=== PATIENT | female | born 1940 | race Caucasian/White ===

== ENCOUNTER 2016-05-07 10:04 | Outpatient (CLI) | payer MEDICARE, MEDICAID | END 2016-05-07 10:05 | disposition home or self-care (01) | DX: E78.5 Hyperlipidemia, unspecified (principal); I25.5 Ischemic cardiomyopathy; I50.22 Chronic systolic (congestive) heart failure; I25.10 Atherosclerotic heart disease of native coronary artery without angina pectoris; Z95.5 Presence of coronary angioplasty implant and graft; I10 Essential (primary) hypertension ==

== ENCOUNTER 2016-06-21 11:14 | Outpatient (CLI) | payer MEDICARE, MEDICAID | END 2016-06-21 11:15 | disposition home or self-care (01) | DX: R05 Cough (principal); R09.89 Other specified symptoms and signs involving the circulatory and respiratory systems; I51.7 Cardiomegaly ==

== ENCOUNTER 2016-09-29 08:00 | Outpatient (CLI) | payer MEDICARE, MEDICAID ==
[2016-09-29 13:13] LABS: HEMOGLOBIN A1C 0.86 g/dL
[2016-09-29 13:22] LABS: ALBUMIN/GLOBULIN RATIO 1.1 (1.0-2.2); BILIRUBIN,TOTAL 0.6 mg/dL (0.2-1.0); BUN - BLOOD UREA NITROGEN 28 mg/dL (6-20); CALCIUM 10.6 mg/dL (8.5-10.3); CARBON DIOXIDE - CO2 27 mmol/L (21-32); CHLORIDE 108 mmol/L (101-111); CHOL/HDL RATIO 5.2 (<4.4); CHOLESTEROL 140 mg/dL; GFR - MDRD 54 (>89); GLUCOSE 127 mg/dL (70-100); HDL CHOLESTEROL 27 mg/dL; LDL/HDL RATIO 2.8 (<4.4); MAGNESIUM 2.1 mg/dL (1.7-2.8); POTASSIUM 4.2 mmol/L (3.5-5.0); SODIUM 139 mmol/L (135-145); TOTAL PROTEIN 7.7 g/dL (6.7-8.2); TRIGLYCERIDES 190 mg/dL; VLDL CHOLESTEROL 38 mg/dL
== END 2016-09-29 08:01 | disposition home or self-care (01) ==
LOC: LAB.N 08:00
PROVIDERS: ATTEND Internal Medicine
DX: I50.9 Heart failure, unspecified (principal); E13.40 Other specified diabetes mellitus with diabetic neuropathy, unspecified; E78.5 Hyperlipidemia, unspecified; N18.3 Chronic kidney disease, stage 3 (moderate)
CPT/HCPCS: 36415; 80053; 80061; 82043; 82570; 83036; 83735; 83880; 84443

== ENCOUNTER 2016-11-25 10:58 | Outpatient (CLI) | payer MEDICARE, MEDICAID | END 2016-11-25 10:59 | disposition critical access hospital (66) | LOC: EMS 10:58 | PROVIDERS: ATTEND Surgery | DX: M54.5 Low back pain (principal); W22.8XXA Striking against or struck by other objects, initial encounter; W18.39XA Other fall on same level, initial encounter; Y92.002 Bathroom of unspecified non-institutional (private) residence as the place of occurrence of the external cause; Z79.01 Long term (current) use of anticoagulants | CPT/HCPCS: A0425; A0429 ==

== ENCOUNTER 2016-11-25 11:21 | Emergency (ER) | payer MEDICARE, MEDICAID ==
--- NOTE | 2016-11-25 13:27 | ED Physician Documentation ---
PD HPI Fall - Stated complaint Stated Complaint: GLF - Chief complaint Chief Complaint: Back Pain - History obtained from History obtained from: Patient, Family - History of Present Illness Mechanism of injury: Slipped Fall distance: Standing position Where injury occurred: Home Timing - onset: How many hours ago (2) Injury(ies) location: Head (hit head on wall on the way to the ground. No LOC. pt is on plavix.), Other (sacrum/coccyx) Pain level max: 5 Pain level now: 1 Quality of pain: Aching, Dull Associated symptoms: No: LOC, AMS, Amnesia, Seizures, Ear drainage, Nasal drainage, Neck pain, Weakness, Paresthesias, Dyspnea, Nausea / vomiting, Hematemesis Symptoms improve with: Rest Worsens with: Movement, Palpation Contributing factors: Anticoagulated (plavix) Review of Systems Constitutional: denies: Fever, Chills Eyes: denies: Decreased vision, Photophobia Ears: denies: Ear pain Nose: denies: Rhinorrhea / runny nose, Congestion Throat: denies: Sore throat Cardiac: denies: Chest pain / pressure Respiratory: denies: Cough, Wheezing GI: denies: Abdominal Pain, Nausea, Vomiting, Diarrhea Skin: denies: Rash Musculoskeletal: denies: Neck pain, Back pain Neurologic: denies: Focal weakness, Numbness, Headache PD PAST MEDICAL HISTORY - Past Medical History Past Medical History: Yes Cardiovascular: Congestive heart failure, Coronary artery disease, [place] Respiratory: Pneumonia, Sleep apnea Neuro: TIA, Head injury Endocrine/Autoimmune: Type 2 diabetes GI: None : Incontinence, Indwelling catheter HEENT: Chronic vision loss, Chronic hearing loss Psych: None Musculoskeletal: Osteoarthritis Derm: Psoriasis - Past Surgical History Past Surgical History: Yes General: Colonoscopy Ortho: Other HEENT: Cataracts - Present Medications Home Medications: Ambulatory Orders Medication Instructions Recorded Confirmed Furosemide [Lasix] 20 mg PO DAILY 10/21/12 11/25/16 Spironolactone [Aldactone] 25 mg PO DAILY 10/21/12 11/25/16 Insulin Glargine,Hum.rec.anlog 20 unit SQ DAILY 09/10/15 11/25/16 [Toucharis Solostar] Carvedilol 12.5 mg PO DAILY 03/17/16 11/25/16 Sacubitril/Valsartan [Entresto 49 1 tab ORAL DAILY 11/25/16 11/25/16 mg-51 mg Tablet] - Allergies Allergies/Adverse Reactions: Allergies Allergy/AdvReac Type Severity Reaction Status Date / Time fentanyl Allergy Unknown Rash Verified 11/25/16 11:36 oxycodone HCl * Allergy Unknown Rash Verified 11/25/16 11:36 [From Percodan] Penicillins Allergy Unknown Rash Verified 11/25/16 11:36 - Social History Does the pt smoke?: No Smoking Status: Former smoker Does the pt drink ETOH?: No Does the pt have substance abuse?: No - POLST Patient has POLST: No PD ED PE NORMAL - Vitals Vital signs reviewed: Yes - General General: Alert and oriented X 3, No acute distress - HEENT HEENT: Atraumatic, PERRL, Moist mucous membranes, Pharynx benign - Neck Neck: Supple, no meningeal sign, No bony TTP - Cardiac Cardiac: RRR, Strong equal pulses - Respiratory Respiratory: No respiratory distress, Clear bilaterally - Abdomen Abdomen: Soft, Non tender, Non distended - Back Back: No spinal TTP (No T or L spine Tenderness. Pt is TTP over the coccyx. No gross deformity. No visible ecchymosis. 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, No motor deficit, No sensory deficit Results - Vitals Vitals: Vital Signs - 24 hr 11/25/16 11/25/16 11/25/16 11:20 11:22 11:31 Temperature 36.6 C Heart Rate 84 62 78 Respiratory 20 18 16 Rate Blood Pressure 168/89 H 169/85 H 144/76 H O2 Saturation 95 98 98 11/25/16 11/25/16 13:55 15:45 Temperature Heart Rate 73 82 Respiratory 18 18 Rate Blood Pressure 114/65 128/84 H O2 Saturation 100 98 Oxygen O2 Source [] Room air O2 Source [] Room air O2 Source Room air - Rads (name of study) head CT Radiology: Prelim report reviewed, EMP read contemporaneously, See rad report ( Generalized age-related cortical atrophic changes without evidence of acute intracranial abnormality) sacrum xray Radiology: Prelim report reviewed, EMP read contemporaneously, See rad report ( Since the comparison study, there is a new focal area of acute angulation of the distal sacral segments, compatible with acute fracture. ) PD MEDICAL DECISION MAKING - ED course Complexity details: reviewed results, re-evaluated patient, considered differential, d/w patient, d/w family ED course: Patient is a 76-year-old female who slipped and fell in the bathroom today. She is on Plavix and did strike her head, therefore a head CT was performed. No acute intracranial abnormality. She is tender over the sacrum and coccyx. On x-ray she appears to have acute angulation of the distal sacral segments, compatible with acute fracture. She declines any pain medication here or for home. Has a walker that she will use at home. Ambulating without difficulty. Patient counseled regarding signs and symptoms for which I believe and urgent re -evaluation would be necessary. Patient with good understanding of and agreement to plan and is comfortable going home at this time This document was made in part using voice recognition software. While efforts are made to proofread this document, sound alike and grammatical errors may occur. Departure - Departure Disposition: 01 Home, Self Care Clinical Impression: Sacral fracture, closed Qualifiers: Encounter type: initial encounter Zone of sacrum fracture: unspecified portion of sacrum Qualified Code(s): S32.10XA - Unspecified fracture of sacrum, initial encounter for closed fracture Condition: Good Instructions: ED Fx Coccyx Follow-Up: Monika Nair MD [Primary Care Provider] - Within 3 Days Comments: Return if you worsen. You may bear weight as tolerated. Discharge Date/Time: 11/25/16 16:05
--- NOTE | 2016-11-25 14:19 | CT Preliminary Report ---
Exam: CT Head W/O IMPRESSION: Generalized age-related cortical atrophic changes without evidence of acute intracranial abnormality. [facility] SITE ID: [id number]
--- NOTE | 2016-11-25 14:22 | CT Report ---
EXAM: CT HEAD EXAM DATE: 11/25/2016 02:09 PM. CLINICAL HISTORY: Fall, head injury. COMPARISON: 09/24/2015. TECHNIQUE: Multiaxial CT images were obtained from the foramen magnum to the vertex. IV contrast: Non e. Reformats: Coronal. In accordance with CT protocol optimization, one or more of the following dose reduction techniques w ere utilized for this exam: automated exposure control, adjustment of mA and/or KV based on patient s ize, or use of iterative reconstructive technique. FINDINGS: Parenchyma: No intraparenchymal hemorrhage. No evidence of mass, midline shift, or CT findings of acu te infarction. Ac-white differentiation is distinct. Extraaxial Spaces: Normal for age. No subdural or epidural collections. Ventricles: The ventricles and cortical sulci are enlarged, consistent with age-related tissue loss. Sinuses: Imaged paranasal sinuses, orbits, and mastoids show no significant abnormality. Bones: Unremarkable. Other: Diffuse chronic microangiopathic white matter changes. IMPRESSION: Generalized age-related cortical atrophic changes without evidence of acute intracranial abnormality. [facility] Referring Provider Line: [phone] SITE ID: [id number]
--- NOTE | 2016-11-25 14:57 | XRAY Preliminary Report ---
Exam: XR Sacrum/Coccyx IMPRESSION: 1. Since the comparison study, there is a new focal area of acute angulation of the distal sacral seg ments, compatible with acute fracture. [facility] SITE ID: [id number]
--- NOTE | 2016-11-25 15:12 | XRAY Report ---
EXAM: SACRUM AND COCCYX RADIOGRAPHY EXAM DATE: 11/25/2016 02:04 PM. HISTORY: Fall, coccyx pain. COMPARISONS: 08/02/2012. TECHNIQUE: 3 views. FINDINGS: Alignment: In the interval, there is a new relatively sharp angulation of the distal sacrum near the coccygeal segments. No discrete step-off. Bones: Bones are osteopenic. Endplate sclerosis is seen at L4-L5 and L5-S1 with marginal facet arthro sis also at these levels. Joints: Normal. The sacroiliac joints and visualized hips are within normal limits. Soft Tissues: Unremarkable. IMPRESSION: 1. Since the comparison study, there is a new focal area of acute angulation of the distal sacral seg ments, compatible with acute fracture. [facility] Referring Provider Line: [phone] SITE ID: [id number]
[2016-11-25 16:10] VITALS: BP 128/84
== END 2016-11-25 16:05 | disposition home or self-care (01) ==
LOC: ED 11:21
DX: S32.10XA Unspecified fracture of sacrum, initial encounter for closed fracture (principal); W01.0XXA Fall on same level from slipping, tripping and stumbling without subsequent striking against object, initial encounter; Y92.019 Unspecified place in single-family (private) house as the place of occurrence of the external cause; I50.9 Heart failure, unspecified; I25.10 Atherosclerotic heart disease of native coronary artery without angina pectoris; I25.2 Old myocardial infarction; G47.30 Sleep apnea, unspecified; E11.9 Type 2 diabetes mellitus without complications; Z79.4 Long term (current) use of insulin; Z86.73 Personal history of transient ischemic attack (TIA), and cerebral infarction without residual deficits; M19.90 Unspecified osteoarthritis, unspecified site; Z87.891 Personal history of nicotine dependence
CPT/HCPCS: 70450; 72220; 99283; 99284

== ENCOUNTER 2016-12-23 05:57 | Day surgery (SDC) | payer MEDICARE, MEDICAID ==
[2016-12-23] MEDS ORDERED: PHENYLEPHRINE 2.5% OPHTH 2 ML DROPS ONE (06:27)
[2016-12-23] MEDS ORDERED: KETOROLAC 0.45% OPHTH DROPS ONE (06:27)
[2016-12-23] MEDS ORDERED: TIMOLOL 0.5% OPHTH DROPS ONE ×2 (06:27→07:09)
[2016-12-23] MEDS ORDERED: CYCLOPENTOLATE 1% OPHTH DROPS 2 ML ONE (06:27)
[2016-12-23] MEDS ORDERED: PROPARACAINE 0.5% OPHTH DROPS 15 ML ONE (06:28)
[2016-12-23] MEDS ORDERED: KETOROLAC 0.45% OPHTH DROPS OPTH ONE (06:45)
[2016-12-23] MEDS ORDERED: CYCLOPENTOLATE 1% OPHTH DROPS 2 ML OPTH ONE (06:45)
[2016-12-23] MEDS ORDERED: PROPARACAINE 0.5% OPHTH DROPS 15 ML OPTH ONE ×2 (06:45→07:32)
[2016-12-23] MEDS ORDERED: PHENYLEPHRINE 2.5% OPHTH 2 ML DROPS OPTH ONE (06:45)
[2016-12-23] MEDS ORDERED: LACTATED RINGERS 500 ML IV ONE (06:49)
[2016-12-23] MEDS ORDERED: BRIMONIDINE 0.2% OPHTH DROPS 5 ML ONE (07:09)
[2016-12-23] MEDS ORDERED: BRIMONIDINE 0.2% OPHTH DROPS 5 ML OPTH ONE (07:31)
[2016-12-23] MEDS ORDERED: EPINEPHrine 1 MG/ML AMP IVP ONE (07:31)
[2016-12-23] MEDS ORDERED: BSS/LIDOCAINE/EPINEPHRINE 1 ML SYRINGE IO ONE ×2 (07:32)
[2016-12-23] MEDS ORDERED: TIMOLOL 0.5% OPHTH DROPS OPTH ONE (07:32)
[2016-12-23] MEDS ORDERED: CHONDR SULF/HYALURONATE SYRINGE IO ONE (07:32)
[2016-12-23] MEDS ORDERED: TRIAMCIN/MOXIFLOX/VANCO 1 ML VIAL IO ONE ×2 (07:33)
[2016-12-23] MEDS ORDERED: MIDAZOLAM 2 MG/2 ML VIAL IVP ONE (07:45)
[2016-12-23] MEDS ORDERED: LABETALOL 5 MG/1 ML 20 ML MDV IV ONE (07:45)
[2016-12-23 08:08] VITALS: BP 149/63
--- NOTE | 2016-12-23 08:38 | OPERATIVE REPORT ---
DATE OF SURGERY: 12/23/2016 00:00:00 PREOPERATIVE DIAGNOSIS: Visually significant cataract, left eye. This is her second cataract surgery. Cataract surgery was performed on the right eye in 2002 elsewhere. POSTOPERATIVE DIAGNOSIS: Visually significant cataract, left eye. This is her second cataract surgery. Cataract surgery was performed on the right eye in 2002 elsewhere. NAME OF PROCEDURE: Phacoemulsification posterior chamber intraocular lens implant, left eye. SURGEON: Kem Monzon MD. ANESTHESIA: Monitored anesthesia care. COMPLICATIONS: None. OPERATIVE INDICATIONS: This is a 76-year-old woman with progressive vision loss in the left eye due to a 2 to 3+ nuclear sclerotic and 2+ cortical cataract. Best corrected visual acuity was 20/60 with glare to 20/630 in the left eye. Indications for surgery were overall decrease in vision, difficulty seeing words on the computer screen, difficulty reading, difficulty seeing words and game scores on TV, difficulty seeing street signs, difficulty driving in low light or at night, difficulty driving at night because of head lights from other vehicles, difficulty with glare or bright lights in any situation, difficulty tracking a golf ball. She was consented at length concerning the risks and benefits of cataract surgery, after which she expressed a desire to proceed with surgery. OPERATIVE PROCEDURE: The patient was taken to OR #2 and placed under monitored anesthesia care. A surgical time-out was conducted confirming the correct patient, correct procedure, and correct surgical site. She was given topical anesthesia and prepped and draped in the usual sterile fashion. The eye was entered at the 6- and 3 o'clock positions. Intracameral Shugarcaine was injected into the anterior chamber followed by Viscoat. A continuous tear curvilinear capsulorrhexis was performed. The nucleus was hydrodissected and phacoemulsified. The cortex was evacuated using automated infusion aspiration. Provisc was injected into the capsular bag and a 19.5 diopter intraocular lens was inserted into the bag. Approximately 0.7 mL of a mixture of triamcinolone, moxifloxacin, and vancomycin was injected subconjunctivally in the superior quadrant for infection and inflammation prophylaxis. I/A was used to evacuate the viscoelastic materials. The eye was inflated to physiologic pressure using balanced salt solution and found to be water tight. The patient was taken from the operating room in good condition and given postoperative instructions. JOB #: [id number] EXT JOB #:[id number] MTDD
== END 2016-12-23 05:58 | disposition home or self-care (01) ==
LOC: SDS 05:57
PROVIDERS: ATTEND Ophthalmology
PROC: 08RK3JZ Replacement of Left Lens with Synthetic Substitute, Percutaneous Approach (ICD-10-PCS; principal; 2016-12-23 07:30)
DX: H25.812 Combined forms of age-related cataract, left eye (principal); E11.9 Type 2 diabetes mellitus without complications
CPT/HCPCS: 66984; A9270; J3490; V2632

== ENCOUNTER 2017-08-29 08:00 | Outpatient (CLI) | payer MEDICARE, MEDICAID ==
[2017-08-29 13:01] LABS: CALCIUM 9.8 mg/dL (8.5-10.3)
== END 2017-08-29 08:01 | disposition home or self-care (01) ==
LOC: LAB.N 08:00
PROVIDERS: ATTEND Internal Medicine Cardiovascular Disease
DX: I50.22 Chronic systolic (congestive) heart failure (principal)
CPT/HCPCS: 36415; 80048; 83880

== ENCOUNTER 2017-09-26 14:42 | Outpatient (CLI) | payer MEDICARE, MEDICAID ==
[2017-09-26 19:38] LABS: CALCIUM 9.7 mg/dL (8.5-10.3); CREATININE 1.1 mg/dL (0.4-1.0); MAGNESIUM 2.4 mg/dL (1.7-2.8)
[2017-09-26 20:04] LABS: HB2 TOTAL 10.9 g/dL; HEMOGLOBIN A1C 0.6 g/dL; HEMOGLOBIN A1C % 7.2 % (4.6-6.2)
== END 2017-09-26 14:43 | disposition home or self-care (01) ==
LOC: LAB.N 14:42
PROVIDERS: ATTEND Internal Medicine
DX: D64.9 Anemia, unspecified (principal); E55.9 Vitamin D deficiency, unspecified; E87.5 Hyperkalemia; I12.9 Hypertensive chronic kidney disease with stage 1 through stage 4 chronic kidney disease, or unspecified chronic kidney disease; E11.22 Type 2 diabetes mellitus with diabetic chronic kidney disease; N18.3 Chronic kidney disease, stage 3 (moderate)
CPT/HCPCS: 36415; 80048; 83036; 83735; 83880; 85651

== ENCOUNTER 2017-10-12 10:24 | Outpatient (CLI) | payer MEDICARE, MEDICAID ==
--- NOTE | 2017-10-12 15:03 | XRAY Report ---
Procedure Date: 10/12/2017 Accession Number: [id number] / [id number] Procedure: XRN - Cervical Spine Complete CPT Code: FULL RESULT: EXAM: Cervical Spine Complete DATE: 10/12/2017 11:09 AM CLINICAL HISTORY: CERVICALGIA COMPARISON: None. TECHNIQUE: 5 views. FINDINGS: Study is technically limited. The superior 6 cervical vertebral bodies are normal in height. There may be slight anterior listhesis of C5 with respect to C6. The alignment of the imaged vertebral bodies is otherwise unremarkable. The C1-2 alignment appears anatomic. The C5-6 disc space is narrowed. The C2-C4 disc spaces are well-maintained. Remaining disc spaces are well-maintained. Scattered degenerative facet joint arthropathy present. The neural foramen are not well seen. No prevertebral soft tissue swelling. Extensive right greater than left carotid artery calcification noted. IMPRESSION: Limited study. Degenerative change present most marked C5-6 disc level. C6-7 and C7-T1 disc levels and neural foramina are not well seen.
== END 2017-10-12 10:25 | disposition home or self-care (01) ==
LOC: DI.N 10:24
PROVIDERS: ATTEND Internal Medicine
DX: M47.892 Other spondylosis, cervical region (principal)
CPT/HCPCS: 72050

== ENCOUNTER 2017-11-09 08:00 | Outpatient (CLI) | payer MEDICARE, MEDICAID ==
[2017-11-09 19:05] LABS: CALCIUM 9.7 mg/dL (8.5-10.3); MAGNESIUM 2.1 mg/dL (1.7-2.8)
[2017-11-09 19:11] LABS: HEMOGLOBIN A1C 0.51 g/dL; HEMOGLOBIN A1C % 6.8 % (4.6-6.2)
== END 2017-11-09 08:01 | disposition home or self-care (01) ==
LOC: LAB.N 08:00
PROVIDERS: ATTEND Internal Medicine
DX: D64.9 Anemia, unspecified (principal); E11.9 Type 2 diabetes mellitus without complications; E55.9 Vitamin D deficiency, unspecified; E78.5 Hyperlipidemia, unspecified; I12.9 Hypertensive chronic kidney disease with stage 1 through stage 4 chronic kidney disease, or unspecified chronic kidney disease; I50.9 Heart failure, unspecified; N18.3 Chronic kidney disease, stage 3 (moderate)
CPT/HCPCS: 36415; 80048; 83036; 83735; 83880; 85651

== ENCOUNTER 2018-07-05 08:00 | Outpatient (CLI) | payer MEDICARE, MEDICAID ==
[2018-07-05 19:12] LABS: BILIRUBIN,URINE NEGATIVE (NEGATIVE); GLUCOSE, URINE (UA) NEGATIVE (NEGATIVE); KETONES,URINE (UA) NEGATIVE (NEGATIVE); LEUKOCYTE ESTERASE, URINE SMALL (NEGATIVE); NITRITE,URINE NEGATIVE (NEGATIVE); OCCULT BLOOD,URINE NEGATIVE (NEGATIVE); PROTEIN,URINE 30 mg/dL (NEGATIVE); UROBILINOGEN,URINE 0.2 (NORMAL) E.U./dL (NORMAL)
[2018-07-05 19:13] LABS: BASOPHILS % (AUTO) 0.2 %; EOSINOPHILS # (AUTO) 0.2 10^3/uL (0.0-0.7); EOSINOPHILS % (AUTO) 3.5 %; HGB - HEMOGLOBIN 9.2 g/dL (12.0-16.0); LYMPHOCYTES # (AUTO) 1.8 10^3/uL (1.5-3.5); LYMPHOCYTES % (AUTO) 35.8 %; MEAN CORPUSCULAR HEMOGLOBIN 27.2 pg (27.0-31.0); MEAN CORPUSCULAR HGB CONC 31.2 g/dL (32.0-36.0); MEAN CORPUSCULAR VOLUME 87.2 fL (81.0-99.0); MEAN PLATELET VOLUME 10.4 fL (7.9-10.8); MONOCYTES # (AUTO) 0.3 10^3/uL (0.0-1.0); MONOCYTES % (AUTO) 5.9 %; NEUTROPHILS # (AUTO) 2.8 10^3/uL (1.5-6.6); NEUTROPHILS % (AUTO) 54.6 %; PLT - PLATELET COUNT 100 10^3/uL (130-450); RED BLOOD COUNT 3.38 10^6/uL (4.20-5.40); RED CELL DISTRIBUTION WIDTH 16.7 % (12.0-15.0); WHITE BLOOD COUNT 5.1 x10^3/uL (4.8-10.8)
[2018-07-05 19:23] LABS: BACTERIA,URINE Many /HPF (None Seen); CLARITY,URINE CLOUDY (CLEAR); RBC,URINE 0-5 /HPF (0-5); SQUAMOUS EPITHELIAL CELL,UR NONE SEEN (<= Few); WBC CLUMPS,URINE PRESENT
[2018-07-05 19:25] LABS: ALBUMIN 3.4 g/dL (3.2-5.5); ALBUMIN/GLOBULIN RATIO 0.9 (1.0-2.2); ALKALINE PHOSPHATASE 73 IU/L (42-121); ALT ALANINE AMINOTRANSFERASE < 10 IU/L (10-60); AST ASPARTATE AMINOTRANSFERASE 13 IU/L (10-42); BILIRUBIN,TOTAL 0.4 mg/dL (0.2-1.0); BUN - BLOOD UREA NITROGEN 30 mg/dL (6-20); CALCIUM 9.9 mg/dL (8.5-10.3); CARBON DIOXIDE - CO2 23 mmol/L (21-32); CHLORIDE 110 mmol/L (101-111); CHOL/HDL RATIO 4.7 (<4.4); CHOLESTEROL 126 mg/dL; GFR - MDRD 53 (>89); GLUCOSE 74 mg/dL (70-100); HDL CHOLESTEROL 27 mg/dL; LDL CHOLESTEROL,CALCULATED 81 mg/dL; MAGNESIUM 2.2 mg/dL (1.7-2.8); SODIUM 140 mmol/L (135-145); TOTAL PROTEIN 7.2 g/dL (6.7-8.2); VLDL CHOLESTEROL 18 mg/dL
== END 2018-07-05 23:59 | disposition home or self-care (01) ==
LOC: LAB.N 08:00
PROVIDERS: ATTEND Internal Medicine
DX: E11.22 Type 2 diabetes mellitus with diabetic chronic kidney disease (principal); I13.0 Hypertensive heart and chronic kidney disease with heart failure and stage 1 through stage 4 chronic kidney disease, or unspecified chronic kidney disease; N18.3 Chronic kidney disease, stage 3 (moderate); I50.22 Chronic systolic (congestive) heart failure; I25.10 Atherosclerotic heart disease of native coronary artery without angina pectoris
CPT/HCPCS: 36415; 80053; 80061; 81001; 82043; 83721; 83735; 84443; 85025

== ENCOUNTER 2019-01-04 12:03 | Outpatient (CLI) | payer MEDICARE, MEDICAID | END 2019-01-04 12:04 | disposition E | LOC: EMS 12:03 | PROVIDERS: ATTEND Surgery ==